=== PATIENT | female | born 1980 | race Caucasian/White ===

== ENCOUNTER 2018-03-11 16:37 | Emergency (ER) | payer BC ==
[2018-03-11] MEDS ORDERED: Sodium Chloride 0.9% 10 ML Syringe FLUSH PRN (17:11)
[2018-03-11] MEDS ORDERED: Ondansetron 4 MG/2 ML SDV IVPUSH ONE (17:12)
[2018-03-11] MEDS ORDERED: Famotidine 20 MG/2 ML SDV IVPUSH ONE (17:13)
--- NOTE | 2018-03-11 17:39 | EDM.PDOC ---
ED HPI GENERAL MEDICAL PROBLEM - General Chief Complaint: Abdominal Pain Stated Complaint: LOWER ABDOMINAL PAIN/NAUSEA Time Seen by Provider: 03/11/18 17:02 Source of Information: Reports: Patient History Limitations: Reports: No Limitations - History of Present Illness INITIAL COMMENTS - FREE TEXT/NARRATIVE: The patient presents with upper abdominal pain. This started a few days ago. This pain starts in the RUQ and moves across her abdomen to the left and then to her back. The pain comes and goes. There is nothing that she knows of that makes it worse or better. She says she has pain in the middle of the night at times. She had an ulcer years ago. She is taking generic nexium. She has no chest pain, shortness of breath or dysuria. Onset: Gradual Duration: Day(s): Location: Reports: Abdomen Quality: Reports: Sharp Severity: Moderate Improves with: Reports: None Worsens with: Reports: None Associated Symptoms: Reports: No Other Symptoms Right Upper Abdominal Pain Score (Numeric/FACES): 5 - Related Data Allergies Allergy/AdvReac Type Severity Reaction Status Date / Time No Known Allergies Allergy Verified 03/11/18 16:59 Home Meds: Home Meds Esomeprazole Magnesium [Nexium] 1 cap PO DAILY 03/11/18 [History] Multivitamin [Multivitamins] 1 cap PO DAILY 03/11/18 [History] Ondansetron [Zofran ODT] 4 mg PO Q6H PRN #20 tab.dis 03/11/18 [Rx] Past Medical History - Past Health History Medical/Surgical History: Denies Medical/Surgical History Other Gastrointestinal History: Ulcers Other OB/BYN History: Ovarian cysts - Past Surgical History HEENT Surgical History: Reports: ALEXIS Social & Family History - Family History Family Medical History: Noncontributory - Tobacco Use Smoking Status *Q: Never Smoker - Recreational Drug Use Recreational Drug Use: No ED ROS GENERAL - Review of Systems Review Of Systems: See Below Constitutional: Reports: No Symptoms HEENT: Reports: No Symptoms Respiratory: Reports: No Symptoms Cardiovascular: Reports: No Symptoms Endocrine: Reports: No Symptoms GI/Abdominal: Reports: Abdominal Pain, Nausea ED EXAM, GI/ABD - Physical Exam Exam: See Below Exam Limited By: No Limitations General Appearance: Alert, No Apparent Distress Ears: Normal External Exam Nose: Normal Inspection Head: Atraumatic, Normocephalic Neck: Normal Inspection Respiratory/Chest: No Respiratory Distress, Lungs Clear, Normal Breath Sounds Cardiovascular: Regular Rate, Rhythm, No Edema, No Murmur GI/Abdominal Exam: Soft, Non-Tender, No Organomegaly, No Mass Back Exam: Normal Inspection Extremities: Normal Inspection Neurological: Alert, Oriented, No Motor/Sensory Deficits Course - Vital Signs Last Recorded V/S: Last Vital Signs Temp 98.4 F 03/11/18 16:56 Pulse 69 03/11/18 16:56 Resp 16 03/11/18 16:56 BP 117/78 03/11/18 16:56 Pulse Ox 100 03/11/18 16:56 - Orders/Labs/Meds Orders: Active Orders 24 hr Category Date Time Status Peripheral IV Care [RC] . DIRECTED Care 03/11/18 17:12 Active UA W/MICROSCOPIC [URIN] Stat Lab 03/11/18 17:30 Ordered Sodium Chloride 0.9% [Saline Flush] Med 03/11/18 17:11 Active 10 ml FLUSH ASDIRECTED PRN Peripheral IV Insertion Adult [OM.PC] Stat Oth 03/11/18 17:11 Ordered Medication Orders Sodium Chloride (Saline Flush) 10 ml FLUSH ASDIRECTED PRN PRN Reason: Keep Vein Open Last Admin: 03/11/18 17:35 Dose: 10 ml Labs: Laboratory Tests 03/11/18 03/11/18 03/11/18 Range/Units 17:10 17:10 17:10 WBC 7.17 (3.98-10.04) K/mm3 RBC 5.32 H (3.98-5.22) M/mm3 Hgb 14.1 (11.2-15.7) gm/L Hct 43.5 (34.1-44.9) % MCV 81.8 (79.4-94.8) fl MCH 26.5 (25.6-32.2) pg MCHC 32.4 (32.2-35.5) g/dl RDW Std Deviation 45.6 (36.4-46.3) fL Plt Count 346 (182-369) K/mm3 MPV 9.2 L (9.4-12.3) fl Neut % (Auto) 48.4 (34.0-71.1) % Lymph % (Auto) 39.1 (19.3-51.7) % [place] % (Auto) 7.8 (4.7-12.5) % Eos % (Auto) 3.6 (0.7-5.8) Baso % (Auto) 1.0 (0.1-1.2) % Neut # (Auto) 3.47 (1.56-6.13) K/mm3 Lymph # (Auto) 2.80 (1.18-3.74) K/mm3 Tillman # (Auto) 0.56 H (0.24-0.36) K/mm3 Eos # (Auto) 0.26 (0.04-0.36) K/mm3 Baso # (Auto) 0.07 (0.01-0.08) K/mm3 Sodium 136 (136-145) mEq/L Potassium 3.7 (3.5-5.1) mEq/L Chloride 102 (98-107) mEq/L Carbon Dioxide 24 (21-32) mEq/L Anion Gap 13.7 (5-15) BUN 21 H (7-18) mg/dL Creatinine 0.9 (0.55-1.02) mg/dL Est Cr Clr Drug Dosing 84.03 mL/min Estimated GFR (MDRD) > 60 (>60) mL/min BUN/Creatinine Ratio 23.3 H (14-18) Glucose 91 (74-106) mg/dL Calcium 9.0 (8.5-10.1) mg/dL Total Bilirubin 0.4 (0.2-1.0) mg/dL AST 22 (15-37) U/L ALT 30 (14-59) U/L Alkaline Phosphatase 70 (46-116) U/L Total Protein 7.9 (6.4-8.2) g/dl Albumin 4.1 (3.4-5.0) g/dl Globulin 3.8 gm/dL Albumin/Globulin Ratio 1.1 (1-2) Lipase 150 (73-393) U/L HCG, Qual Negative (NEGATIVE) Urine Color (Yellow) Urine Appearance (Clear) Urine pH (5.0-8.0) Ur Specific [place] (1.005-1.030) Urine Protein (Negative) Urine Glucose (UA) (Negative) Urine Ketones (Negative) Urine Occult Blood (Negative) Urine Nitrite (Negative) Urine Bilirubin (Negative) Urine Urobilinogen (0.2-1.0) Ur Leukocyte Esterase (Negative) Urine RBC (0-5) /hpf Urine WBC (0-5) /hpf Ur Epithelial Cells (0-5) /hpf Urine Bacteria (FEW) /hpf Urine Mucus (FEW) /hpf 03/11/18 Range/Units 17:30 WBC (3.98-10.04) K/mm3 RBC (3.98-5.22) M/mm3 Hgb (11.2-15.7) gm/L Hct (34.1-44.9) % MCV (79.4-94.8) fl MCH (25.6-32.2) pg MCHC (32.2-35.5) g/dl RDW Std Deviation (36.4-46.3) fL Plt Count (182-369) K/mm3 MPV (9.4-12.3) fl Neut % (Auto) (34.0-71.1) % Lymph % (Auto) (19.3-51.7) % [place] % (Auto) (4.7-12.5) % Eos % (Auto) (0.7-5.8) Baso % (Auto) (0.1-1.2) % Neut # (Auto) (1.56-6.13) K/mm3 Lymph # (Auto) (1.18-3.74) K/mm3 [place] # (Auto) (0.24-0.36) K/mm3 Eos # (Auto) (0.04-0.36) K/mm3 Baso # (Auto) (0.01-0.08) K/mm3 Sodium (136-145) mEq/L Potassium (3.5-5.1) mEq/L Chloride (98-107) mEq/L Carbon Dioxide (21-32) mEq/L Anion Gap (5-15) BUN (7-18) mg/dL Creatinine (0.55-1.02) mg/dL Est Cr Clr Drug Dosing mL/min Estimated GFR (MDRD) (>60) mL/min BUN/Creatinine Ratio (14-18) Glucose (74-106) mg/dL Calcium (8.5-10.1) mg/dL Total Bilirubin (0.2-1.0) mg/dL AST (15-37) U/L ALT (14-59) U/L Alkaline Phosphatase (46-116) U/L Total Protein (6.4-8.2) g/dl Albumin (3.4-5.0) g/dl Globulin gm/dL Albumin/Globulin Ratio (1-2) Lipase (73-393) U/L HCG, Qual (NEGATIVE) Urine Color Yellow (Yellow) Urine Appearance Clear (Clear) Urine pH 6.0 (5.0-8.0) Ur Specific [place] 1.025 (1.005-1.030) Urine Protein Negative (Negative) Urine Glucose (UA) Negative (Negative) Urine Ketones Negative (Negative) Urine Occult Blood Negative (Negative) Urine Nitrite Negative (Negative) Urine Bilirubin Negative (Negative) Urine Urobilinogen 0.2 (0.2-1.0) Ur Leukocyte Esterase Negative (Negative) Urine RBC 0-5 (0-5) /hpf Urine WBC 0-5 (0-5) /hpf Ur Epithelial Cells 0-5 (0-5) /hpf Urine Bacteria Not seen (FEW) /hpf Urine Mucus Not seen (FEW) /hpf Meds: Medications Generic Name Dose Route Start Last Admin Trade Name Freq PRN Reason Stop Dose Admin Sodium Chloride 10 ml 03/11/18 17:11 03/11/18 17:35 Saline Flush FLUSH 10 ml ASDIRECTED PRN Administration Keep Vein Open Discontinued Medications Generic Name Dose Route Start Last Admin Trade Name Freq PRN Reason Stop Dose Admin Famotidine 20 mg 03/11/18 17:13 03/11/18 17:34 Pepcid IVPUSH 03/11/18 17:14 20 mg ONETIME ONE Administration Ondansetron HCl 4 mg 03/11/18 17:12 03/11/18 17:36 Zofran IVPUSH 03/11/18 17:13 4 mg ONETIME ONE Administration - Re-Assessments/Exams Free Text/Narrative Re-Assessment/Exam: 03/11/18 18:36 I ordered an IV saline lock, pepcid 20mg IV, zofran 4mg IV, labs and UA. Her CBC and CMP look good. Her UA shows no UTI. I feel this is gastritis. I will have her take some pepcid daily and zofran as needed. I will have her follow up with Margarita Sanchez if she is not better and possibly get an EGD or US. Departure - Departure Time of Disposition: 18:40 Disposition: Home, Self-Care 01 Condition: Good Clinical Impression: Gastritis Qualifiers: Gastritis type: unspecified gastritis Chronicity: acute Gastritis bleeding: without bleeding Qualified Code(s): K29.00 - Acute gastritis without bleeding Abdominal pain Qualifiers: Abdominal location: upper abdomen, unspecified Qualified Code(s): R10.10 - Upper abdominal pain, unspecified - Discharge Information Prescriptions: Ondansetron [Zofran ODT] 4 mg PO Q6H PRN #20 tab.dis PRN Reason: Nausea\vomiting Referrals: PCP,None [Primary Care Provider] - Margarita Sanchez MOTH EXTERMINATOR [Ordering Only Provider] - 1 Week Forms: ED Department Discharge Additional Instructions: Take pepcid daily for 1 week. Continue to take your other meds. You may also try some tums or maalox. Please return if you are worse and follow up with Margarita Sanchez. - My Orders Last 24 Hours: My Active Orders 03/11/18 17:11 Sodium Chloride 0.9% [Saline Flush] 10 ml FLUSH ASDIRECTED PRN Peripheral IV Insertion Adult [OM.PC] Stat 03/11/18 17:12 Peripheral IV Care [RC] . DIRECTED 03/11/18 17:30 UA W/MICROSCOPIC [URIN] Stat - Assessment/Plan Last 24 Hours: My Active Orders 03/11/18 17:11 Sodium Chloride 0.9% [Saline Flush] 10 ml FLUSH ASDIRECTED PRN Peripheral IV Insertion Adult [OM.PC] Stat 03/11/18 17:12 Peripheral IV Care [RC] . DIRECTED 03/11/18 17:30 UA W/MICROSCOPIC [URIN] Stat
== END 2018-03-11 18:55 | disposition home or self-care (01) ==
LOC: JD.ED 16:37
DX: K29.00 Acute gastritis without bleeding (principal)
CPT/HCPCS: 36415; 80053; 81001; 83690; 84703; 85025; 96374; 96375; 99284; J2405; J7050

== ENCOUNTER 2018-04-01 20:36 | Emergency (ER) | payer BC ==
[2018-04-01] MEDS ORDERED: Ondansetron 4 MG Tab.DIS ONE (21:28)
[2018-04-01] MEDS ORDERED: Acetaminophen/HYDROcodone 325-5 MG Tab ONE (23:01)
--- NOTE | 2018-04-02 02:55 | EDM.PDOC ---
ED HPI GENERAL MEDICAL PROBLEM - General Chief Complaint: Abdominal Pain Stated Complaint: STOMACH PAIN Time Seen by Provider: 04/02/18 00:21 Source of Information: Reports: Patient, RN Notes Reviewed - History of Present Illness INITIAL COMMENTS - FREE TEXT/NARRATIVE: 38-year-old lady comes in with abdominal pain that started about 8 hours ago. Started out as kind of a mild ache upper mid abdomen and then progressed to quite severe discomfort about 3 hours ago. The pain continues quite severe upper mid and right upper abdomen and now radiating around to the left abdomen as well. She has had some nausea with this but no vomiting. She has had a soft BM but no diarrhea. No recent fever or chills. She did have a similar episode of discomfort about 2 weeks ago was seen here in the ED, no definitive diagnosis. She still does have her appendix and gallbladder. - Related Data Allergies Allergy/AdvReac Type Severity Reaction Status Date / Time No Known Allergies Allergy Verified 03/11/18 16:59 Home Meds: Home Meds Esomeprazole Magnesium [Nexium] 1 cap PO DAILY 03/11/18 [History] Multivitamin [Multivitamins] 1 cap PO DAILY 03/11/18 [History] Ondansetron [Zofran ODT] 4 mg PO Q6H PRN #20 tab.dis 03/11/18 [Rx] Past Medical History - Past Health History Medical/Surgical History: Denies Medical/Surgical History Other Gastrointestinal History: Ulcers Other OB/BYN History: Ovarian cysts - Past Surgical History HEENT Surgical History: Reports: ALEXIS Social & Family History - Family History Family Medical History: Noncontributory ED ROS GENERAL - Review of Systems Review Of Systems: See Below Constitutional: Denies: Fever, Chills HEENT: Reports: No Symptoms Respiratory: Denies: Shortness of Breath Cardiovascular: Denies: Chest Pain GI/Abdominal: Reports: Abdominal Pain, Nausea. Denies: Diarrhea, Hematochezia, Melena, Vomiting : Reports: No Symptoms Musculoskeletal: Reports: No Symptoms Skin: Reports: No Symptoms Neurological: Reports: No Symptoms ED EXAM, GI/ABD - Physical Exam Exam: See Below General Appearance: Alert, Mild Distress Eyes: Bilateral: Normal Appearance Throat/Mouth: Normal Inspection, Normal Oropharynx Neck: Supple, Full Range of Motion Respiratory/Chest: No Respiratory Distress, Lungs Clear, Normal Breath Sounds Cardiovascular: Regular Rate, Rhythm GI/Abdominal Exam: Soft, Tender (Mild tenderness her mid abdomen, right upper quadrant, left upper quadrant.). No: Guarding, Rebound Extremities: Normal Inspection, Normal Range of Motion Neurological: Alert, Oriented, No Motor/Sensory Deficits Skin Exam: Warm, Dry, Normal Color Course - Vital Signs Last Recorded V/S: Last Vital Signs Temp 98.2 F 04/02/18 01:42 Pulse 72 04/02/18 01:42 Resp 18 04/02/18 01:42 BP Pulse Ox 100 04/02/18 01:42 - Orders/Labs/Meds Labs: Laboratory Tests 04/01/18 04/01/18 Range/Units 21:45 21:45 WBC 7.70 (3.98-10.04) K/mm3 RBC 4.97 (3.98-5.22) M/mm3 Hgb 13.4 (11.2-15.7) gm/L Hct 40.6 (34.1-44.9) % MCV 81.7 (79.4-94.8) fl MCH 27.0 (25.6-32.2) pg MCHC 33.0 (32.2-35.5) g/dl RDW Std Deviation 44.8 (36.4-46.3) fL Plt Count 335 (182-369) K/mm3 MPV 9.5 (9.4-12.3) fl Neutrophils % (Manual) 66 H (40-60) % Lymphocytes % (Manual) 31 (20-40) % Monocytes % (Manual) 2 (2-10) % Basophils % (Manual) 1 (0.1-1.2) Platelet Estimate Adequate RBC Morph Comment Normal Sodium 138 (136-145) mEq/L Potassium 3.6 (3.5-5.1) mEq/L Chloride 104 (98-107) mEq/L Carbon Dioxide 23 (21-32) mEq/L Anion Gap 14.6 (5-15) BUN 23 H (7-18) mg/dL Creatinine 0.9 (0.55-1.02) mg/dL Est Cr Clr Drug Dosing 83.23 mL/min Estimated GFR (MDRD) > 60 (>60) mL/min BUN/Creatinine Ratio 25.6 H (14-18) Glucose 97 (74-106) mg/dL Calcium 8.8 (8.5-10.1) mg/dL Total Bilirubin 0.3 (0.2-1.0) mg/dL AST 20 (15-37) U/L ALT 15 (14-59) U/L Alkaline Phosphatase 62 (46-116) U/L Total Protein 7.2 (6.4-8.2) g/dl Albumin 3.8 (3.4-5.0) g/dl Globulin 3.4 gm/dL Albumin/Globulin Ratio 1.1 (1-2) Lipase 136 (73-393) U/L - Re-Assessments/Exams Free Text/Narrative Re-Assessment/Exam: 04/02/18 02:53 We did give Zofran 4 mg ODT. I did offer IV fluid and meds but she declined. Labs did come back quite normal, order for ultrasound to be done 7:30, Sunday a.m. April 02 has been written and she is on the schedule for that. Discharge instructions as documented. Departure - Departure Time of Disposition: 22:45 Disposition: Home, Self-Care 01 Clinical Impression: Abdominal pain Qualifiers: Abdominal location: upper abdomen, unspecified Qualified Code(s): R10.10 - Upper abdominal pain, unspecified - Discharge Information Referrals: Margarita Sanchez ACADEMIC DIRECTOR [Primary Care Provider] - Forms: ED Department Discharge
== END 2018-04-02 00:22 | disposition home or self-care (01) ==
LOC: JD.ED 20:36
DX: R10.10 Upper abdominal pain, unspecified (principal); Z79.899 Other long term (current) drug therapy
CPT/HCPCS: 36415; 80053; 83690; 85007; 85027; 99284; A9270; 99283